=== PATIENT | female | born 1990 | race Hispanic/Latino ===

== ENCOUNTER 2020-03-06 17:55 | Emergency (ER) | payer OTHER, SELFPAY ==
[2020-03-06] MEDS ORDERED: Ketorolac Tromethamine 30 MG/ML VIAL ONE (19:10)
[2020-03-06] MEDS ORDERED: Dexamethasone 4 mg/ml Vial ONE (19:11)
== END 2020-03-06 20:39 | disposition home or self-care (01) ==
LOC: ERS 17:55
DX: S39.012A Strain of muscle, fascia and tendon of lower back, initial encounter (principal); W19.XXXA Unspecified fall, initial encounter
CPT/HCPCS: 96372; 99283; J1100; J1885